=== PATIENT | female | born 1950 | race Caucasian/White ===

== ENCOUNTER 2022-04-17 09:47 | Outpatient (CLI) | payer MEDICARE | END 2022-04-17 09:48 | disposition home or self-care (01) | LOC: TBSIIMAG 09:47 | PROVIDERS: ATTEND Neurological Surgery | DX: M47.12 Other spondylosis with myelopathy, cervical region (principal) | CPT/HCPCS: 72040; 72141 ==

== ENCOUNTER 2022-05-10 08:22 | Outpatient (CLI) | payer MEDICARE | END 2022-05-10 08:23 | disposition home or self-care (01) | LOC: TBSIIMAG 08:22 | PROVIDERS: ATTEND Neurological Surgery | DX: M47.22 Other spondylosis with radiculopathy, cervical region (principal); M43.12 Spondylolisthesis, cervical region; M43.13 Spondylolisthesis, cervicothoracic region | CPT/HCPCS: 72040 ==

== ENCOUNTER 2022-06-06 13:02 | Outpatient (CLI) | payer MEDICARE ==
[2022-06-06 15:00] LABS: Hemoglobin 14.7 g/dL (12.0-15.5); Mean Corpuscular HGB CONC 34.5 g/dL (32.0-36.0); Mean Corpuscular Hemoglobin 31.9 pg (27.0-33.0); Mean Corpuscular Volume 92.4 fl (81.6-98.3); Mean Platelet Volume 11.8 fl (7.4-10.4); Platelet Count 270 10x3/uL (150-450); RBC Distribution Width 11.9 % (11.5-14.5); Red Blood Cell (RBC) Count 4.61 10x6/uL (3.90-5.03); White Blood Cell (WBC) Count 6.7 10x3/uL (3.5-10.5)
[2022-06-06 15:20] LABS: PTT 25.6 sec (22.0-33.0); Prothrombin Time 10.7 sec (9.5-12.1)
[2022-06-06 15:25] LABS: Anion Gap 13 mmol/L (10-20); BUN (Urea Nitrogen) 18 mg/dL (9.8-20.1); Calc. Creatinine Clearance 0 mL/min (70-130); Calcium 10.2 mg/dL (7.8-10.44); Carbon Dioxide 29 mmol/L (23-31); Chloride 103 mmol/L (98-107); Estimated GFR 87; Glucose 142 mg/dL (83-110); Potassium 3.8 mmol/L (3.5-5.1); Sodium 141 mmol/L (136-145)
== END 2022-06-06 13:03 | disposition home or self-care (01) ==
LOC: LABBT 13:02
PROVIDERS: ATTEND Neurological Surgery
DX: Z01.812 Encounter for preprocedural laboratory examination (principal); M43.22 Fusion of spine, cervical region; M50.021 Cervical disc disorder at C4-C5 level with myelopathy; M50.022 Cervical disc disorder at C5-C6 level with myelopathy; Z20.822 Contact with and (suspected) exposure to COVID-19
CPT/HCPCS: 80048; 85027; 85610; 85730; 87811; 93005; 93010

== ENCOUNTER 2022-06-11 05:37 | Day surgery (SDC) | payer MEDICARE ==
[2022-06-07 13:17] VITALS: BMI 22.8
[2022-06-11] MEDS ORDERED: Neomycin-Polymyxin 1 ML AMP ONE (06:13)
[2022-06-11] MEDS ORDERED: Thrombin 5000 UNITS/5 ML VIAL ONE (06:13)
[2022-06-11] MEDS ORDERED: fentaNYL Citrate/PF 100 MCG/2 ML SYRINGE ONE (06:31)
[2022-06-11] MEDS ORDERED: Dexmedetomidine 200 MCG/2 ML VIAL ONE (06:31)
[2022-06-11] MEDS ORDERED: Sodium Chloride 0.9% 100 ML ONE (06:45)
[2022-06-11] MEDS ORDERED: Midazolam HCl 2 mg/2 ml Vial ONE (06:45)
[2022-06-11] MEDS ORDERED: CEFAZOLIN 2 GM VIAL ONE (06:45)
[2022-06-11] MEDS ORDERED: Lidocaine 1% PF 5 ML VIAL ONE (07:01)
[2022-06-11] MEDS ORDERED: Phenylephrine 10 MG/ML VIAL ONE (07:01)
[2022-06-11] MEDS ORDERED: Neostigmine Methylsulfate 3 MG/3 ML SYRINGE ONE (07:01)
[2022-06-11] MEDS ORDERED: Ondansetron PF 4 MG/2 ML Vial ONE (07:01)
[2022-06-11] MEDS ORDERED: Rocuronium Bromide 10 MG/ML (10ML VIAL) ONE (07:01)
[2022-06-11] MEDS ORDERED: Vecuronium 10 MG VIAL ONE (07:01)
[2022-06-11] MEDS ORDERED: ePHEDrine 50 MG/ML VIAL ONE (07:01)
[2022-06-11] MEDS ORDERED: PROPOFOL 200 MG/20 ML VIAL ONE (07:01)
[2022-06-11] MEDS ORDERED: Glycopyrrolate 0.2 MG/ML 5 ML SYRINGE ONE (07:01)
[2022-06-11] MEDS ORDERED: Dexamethasone 20 MG/5 ML VIAL ONE (07:01)
== END 2022-06-11 13:28 | disposition home or self-care (01) ==
LOC: SDC 05:37
PROVIDERS: ATTEND Neurological Surgery
PROC: 0RG20A0 Fusion of 2 or more Cervical Vertebral Joints with Interbody Fusion Device, Anterior Approach, Anterior Column, Open Approach (ICD-10-PCS; principal; 2022-06-11)
PROC: 0RG2070 Fusion of 2 or more Cervical Vertebral Joints with Autologous Tissue Substitute, Anterior Approach, Anterior Column, Open Approach (ICD-10-PCS; 2022-06-11)
PROC: 0RG40A0 Fusion of Cervicothoracic Vertebral Joint with Interbody Fusion Device, Anterior Approach, Anterior Column, Open Approach (ICD-10-PCS; 2022-06-11)
PROC: 0RT30ZZ Resection of Cervical Vertebral Disc, Open Approach (ICD-10-PCS; 2022-06-11)
PROC: 0RT50ZZ Resection of Cervicothoracic Vertebral Disc, Open Approach (ICD-10-PCS; 2022-06-11)
DX: M50.021 Cervical disc disorder at C4-C5 level with myelopathy (principal); M50.13 Cervical disc disorder with radiculopathy, cervicothoracic region; M43.12 Spondylolisthesis, cervical region; M48.02 Spinal stenosis, cervical region; I10 Essential (primary) hypertension; Z79.82 Long term (current) use of aspirin; Z79.899 Other long term (current) drug therapy
CPT/HCPCS: 20930; 20936; 22551; 22552; 22845; 22853 ×2; 76000; C1713 ×5; J0690; J1100; J2250; J2370; J2405; J2704; J3490

== ENCOUNTER 2022-08-08 14:17 | Outpatient (CLI) | payer MEDICARE | END 2022-08-08 14:18 | disposition home or self-care (01) | LOC: TBSIIMAG 14:17 | PROVIDERS: ATTEND Neurological Surgery | DX: M47.812 Spondylosis without myelopathy or radiculopathy, cervical region (principal); Z98.1 Arthrodesis status | CPT/HCPCS: 72040 ==